=== PATIENT | female | born 1950 | race Caucasian/White ===

== ENCOUNTER 2017-01-09 10:00 | Emergency (ER) | payer OTHER, MEDICARE ==
[~2017-01-09] VITALS: Ht 154.9 cm; Wt 80.8 kg
[2017-01-09 10:08] VITALS: BP 144/78; PULSE 66; RESP 15; TEMP 97.8; O2SAT 98
[2017-01-09] MEDS ORDERED: ZOLO50TA PO (11:09)
[2017-01-09] MEDS ORDERED: PRIN10TA PO (11:09)
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
[2017-01-09] MEDS ORDERED: KETOROLAC TROMETHAMINE 60 MG/2 ML (IM) VIAL IM ONE (12:15)
[2017-01-09] MEDS ORDERED: ROBA750T PO (12:15)
[2017-01-09] MEDS ORDERED: NAPR500 PO (12:16)
[2017-01-09] MEDS ORDERED: HYDR-3534 PO (12:16)
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
== END 2017-01-09 13:28 | disposition home or self-care (01) ==
LOC: PHEFT 10:00
DX: M79.1 Myalgia (principal); M54.5 Low back pain
CPT/HCPCS: 23650; 73030; 96372; 99284; J1885